=== PATIENT | female | born 1935 | race Two or more races ===

== ENCOUNTER 2016-05-26 11:38 | Inpatient (IN) | payer OTHER, MEDICAID ==
[~2016-05-26] VITALS: Ht 154.9 cm; Wt 81.6 kg
[~2016-05-26 11:38] MED LIST: ACYC200C PO; Aspirin PO; CALC200T3 PO; CARV6.252 PO; CELE200C PO; CEPH-264 PO; CITA20TA5 PO; GABA-586 PO; GABA600T2 PO; HYDR12.53 PO; LANS30CA17 PO; LISI-334 PO; Lisinopril PO; METF10002 PO; OMEP20CA9 PO; OXYC-323 PO; SIMV10TA3 PO; SITA100T PO; SITA1TAB11 PO; Sulfamethoxazole/Trimethoprim PO; VERA240T PO
--- NOTE | 2016-05-26 13:18 | RAD ---
Portable chest, 05/26/2016: History: Shortness of breath with dyspnea Comparison is made to a study from 04/26/2015. There is a vascular stent projected over the ascending aorta. The heart is mildly enlarged. There is calcific plaquing of the aorta. The pulmonary vascularity is normal. No pulmonary infiltrates are seen. There is no evidence of pleural fluid. IMPRESSION: 1. Mild cardiomegaly and aortic atherosclerosis. 2. No acute abnormality is detected.
--- NOTE | 2016-05-26 13:51 | EKG ---
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
[2016-05-26 14:18] LABS: BASO % 1 % (0-3); EOS % 6 % (0-3); HEMATOCRIT 36.3 % (36.0-47.0); HEMOGLOBIN 12.3 g/dL (12.0-15.5); LYMPH # 1.1 x10^3/uL (1.0-4.8); LYMPH % 12 % (24-48); MEAN CORPUSCULAR HEMOGLOBIN 29 pg (25-35); MEAN CORPUSCULAR HGB CONC 34 g/dL (31-37); MEAN CORPUSCULAR VOLUME 87 fL (79-100); MONO % 7 % (0-9); NEUT % 75 % (31-73); PLATELET COUNT 105 x10^3/uL (140-400); RED BLOOD COUNT 4.18 x10^6/uL (3.50-5.40); RED CELL DISTRIBUTION WIDTH 13.4 % (11.5-14.5); WHITE BLOOD COUNT 9.4 x10^3/uL (4.0-11.0)
[2016-05-26 14:28] LABS: BILIRUBIN,URINE NEGATIVE (NEG); GLUCOSE,URINE NEGATIVE (NEG); NITRITE,URINE POSITIVE (NEG); PH,URINE 5.5; PROTEIN,URINE 100 mg/dL (NEG-TRACE); UROBILINOGEN,URINE 0.2 mg/dL (0.2 mg/dL)
[2016-05-26 14:29] LABS: CALCIUM 8.8 mg/dL (8.5-10.1); CREATININE 1.2 mg/dL (0.6-1.0); GFR 43.3; POTASSIUM 4.4 mmol/L (3.5-5.1)
[2016-05-26 14:35] LABS: ALBUMIN 3.4 g/dL (3.4-5.0); ALBUMIN/GLOBULIN RATIO 0.9 (1.0-1.7); TOTAL BILIRUBIN 0.4 mg/dL (0.2-1.0)
[2016-05-26 14:47] LABS: BACTERIA,URINE MANY /HPF (0-FEW); RBC,URINE 0 /HPF (0-2); SQUAMOUS EPITHELIAL CELL,UR FEW /LPF; WBC,URINE >40 /HPF (0-4)
--- NOTE | 2016-05-26 14:59 | PHYS DOC ---
Past Medical History Past Medical History: A-Fib, Cancer, Diabetes-Type II, High Cholesterol, Hypertension, Other Additional Past Medical Histor: "HEART PROBLEMS", shingles Past Surgical History: Angioplasty, Cholecystectomy, Hysterectomy, Tonsillectomy, Other Additional Past Surgical Histo: L KNEE SURGERY, back sx, HEART CATH Alcohol Use: None Drug Use: None Adult General Chief Complaint Chief Complaint: HYPOGLYCEMIA HPI HPI 80-year-old female presents to the emergency department secondary to low blood sugar. Her son states that he complained her this morning that she just felt terribly weak and felt like she needed to go to the hospital. He immediately called EMS to have her brought in. He then was able to check her blood sugar and it was in the 60s he gave her a soda and an apple and this seemed to make her feel better and bring her blood sugar up to a little over 100. Patient states she was in the hospital recently with a urinary tract infection and during that time had several of these similar spells. She denies any fever chills sweats nausea vomiting or diarrhea. She does not have any body aches or upper respiratory type symptoms. She denies a headache or any lateralizing neurologic weakness. [] Review of Systems Review of Systems Constitutional: Denies fever or chills [] Eyes: Denies change in visual acuity, redness, or eye pain [] HENT: Denies nasal congestion or sore throat [] Respiratory: Denies cough or shortness of breath [] Cardiovascular: No additional information not addressed in HPI [] GI: Denies abdominal pain, nausea, vomiting, bloody stools or diarrhea [] : Denies dysuria or hematuria [] Musculoskeletal: Denies back pain or joint pain [] Integument: Denies rash or skin lesions [] Neurologic: Denies headache, focal weakness or sensory changes [] Endocrine: Denies polyuria or polydipsia [] Current Medications Current Medications Current Medications Medications (Trade) Dose Ordered Sig/Tarik Start Time Stop Time Status Last Admin Dose Admin Ceftriaxone Sodium (Rocephin 1gm Ivpb For Omni) 50 ml @ 100 mls/hr 1X ONCE 05/26/16 15:00 05/26/16 15:29 Dextrose 12.5 gm PRN Q15MIN PRN 05/26/16 15:00 Insulin Aspart (Novolog) 0-7 UNITS TIDWMEALS 05/26/16 17:00 UNV Ondansetron HCl 4 mg 4 mg PRN Q8HRS PRN 05/26/16 15:00 05/27/16 14:59 Sodium Chloride (Iv Sodium Chloride 0.9% 1000ml Bag) 1,000 ml @ 125 mls/hr Q8H 05/26/16 14:50 05/27/16 14:49 Allergies Allergies Allergies Coded Allergies Type Severity Reaction Last Updated Verified No Known Drug Allergies 02/20/14 No Physical Exam Physical Exam Constitutional: Well developed, well nourished, somnolent and generally debilitated. [] HENT: Normocephalic, atraumatic, bilateral external ears normal, oropharynx moist, no oral exudates, nose normal. [] Eyes: PERRLA, EOMI, conjunctiva normal, no discharge. [] Neck: Normal range of motion, no tenderness, supple, no stridor. [] Cardiovascular:Heart rate regular rhythm, no murmur [] Lungs & Thorax: Bilateral breath sounds clear to auscultation [] Abdomen: Bowel sounds normal, soft, no tenderness, no masses, no pulsatile masses. [] Skin: Warm, dry, no erythema, no rash. [] Back: No tenderness, no CVA tenderness. [] Extremities: No tenderness, no cyanosis, no clubbing, ROM intact, no edema. [] Neurologic: Alert and oriented X 3, normal motor function, normal sensory function, no focal deficits noted. [] Psychologic: Depressed affect. [] Current Patient Data Vital Signs Vital Signs Date Time Temp Pulse Resp B/P Pulse Ox O2 Delivery O2 Flow Rate FiO2 05/26/16 11:44 97.5 62 20 195/88 98 Room Air 97.5 Lab Values Laboratory Tests Test 05/26/16 14:03 05/26/16 14:21 White Blood Count 9.4x10^3/uL (4.0-11.0) Red Blood Count 4.18x10^6/uL (3.50-5.40) Hemoglobin 12.3g/dL (12.0-15.5) Hematocrit 36.3% (36.0-47.0) Mean Corpuscular Volume 87fL (79-100) Mean Corpuscular Hemoglobin 29pg (25-35) Mean Corpuscular Hemoglobin Concent 34g/dL (31-37) Red Cell Distribution Width 13.4% (11.5-14.5) Platelet Count 105x10^3/uL (140-400) L Neutrophils (%) (Auto) 75% (31-73) H Lymphocytes (%) (Auto) 12% (24-48) L Monocytes (%) (Auto) 7% (0-9) Eosinophils (%) (Auto) 6% (0-3) H Basophils (%) (Auto) 1% (0-3) Neutrophils # (Auto) 7.1x10^3uL (1.8-7.7) Lymphocytes # (Auto) 1.1x10^3/uL (1.0-4.8) Monocytes # (Auto) 0.6x10^3/uL (0.0-1.1) Eosinophils # (Auto) 0.5x10^3/uL (0.0-0.7) Basophils # (Auto) 0.0x10^3/uL (0.0-0.2) Sodium Level 141mmol/L (136-145) Potassium Level 4.4mmol/L (3.5-5.1) Chloride Level 103mmol/L (98-107) Carbon Dioxide Level 29mmol/L (21-32) Anion Gap 9 (6-14) Blood Urea Nitrogen 33mg/dL (7-20) H Creatinine 1.2mg/dL (0.6-1.0) H Estimated GFR (Cockcroft-Gault) 43.3 BUN/Creatinine Ratio 28 (6-20) H Glucose Level 101mg/dL (70-99) H Calcium Level 8.8mg/dL (8.5-10.1) Total Bilirubin 0.4mg/dL (0.2-1.0) Aspartate Amino Transferase (AST) 16U/L (15-37) Alanine Aminotransferase (ALT) 15U/L (14-59) Alkaline Phosphatase 70U/L (46-116) Total Protein 7.0g/dL (6.4-8.2) Albumin 3.4g/dL (3.4-5.0) Albumin/Globulin Ratio 0.9 (1.0-1.7) L Urine Collection Type U cath Urine Color Yellow Urine Clarity Clear Urine pH 5.5 Urine Specific [place] 1.020 Urine Protein 100mg/dL (NEG-TRACE) Urine Glucose (UA) Negativemg/dL (NEG) Urine Ketones (Stick) Negativemg/dL (NEG) Urine Blood Negative (NEG) Urine Nitrite Positive (NEG) Urine Bilirubin Negative (NEG) Urine Urobilinogen Dipstick 0.2mg/dL (0.2 mg/dL) Urine Leukocyte Esterase Small (NEG) Urine RBC 0/HPF (0-2) Urine WBC >40/HPF (0-4) Urine Squamous Epithelial Cells Few/LPF Urine Bacteria Many/HPF (0-FEW) Urine Hyaline Casts Moderate/HPF Laboratory Tests 05/26/16 14:03 Laboratory Tests 05/26/16 14:03 EKG EKG [] Radiology/Procedures Radiology/Procedures [] Course & Med Decision Making Course & Med Decision Making Pertinent Labs and Imaging studies reviewed. (See chart for details) [] ED course: Evaluation reveals a 80-year-old very weak frail female who as it turns out has a urinary tract infection she was given IV fluids during her stay in the emergency department as well as 1 g of IV Rocephin. I feel that best suited to watch her blood sugars closely in the hospital and treated with IV antibiotics and fluids as an inpatient. I spoke with Dr. Killian who agrees with this plan. Dragon Disclaimer Dragon Disclaimer This electronic medical record was generated, in whole or in part, using a voice recognition dictation system. Departure Departure Impression: Primary Impression: UTI (urinary tract infection) Additional Impression: Hypoglycemia Disposition: 09 ADMITTED INPATIENT Admitting Physician: Duane Killian Condition: STABLE Referrals: DUANE KILLIAN MD (PCP) Problem Qualifiers Primary Impression: UTI (urinary tract infection) Urinary tract infection type: site unspecified Hematuria presence: without hematuria Qualified Code: N39.0 - Urinary tract infection, site not specified AMARILIS HOOKS DO May 26, 2016 14:59
[2016-05-26] MEDS ORDERED: CEFTRIAXONE 1GM IVPB FOR OMNI 50 ML IV ONE (15:00)
[2016-05-26] MEDS ORDERED: ONDANSETRON PF 4 MG/2 ML VIAL. IV PRN (15:00)
[2016-05-26] MEDS ORDERED: DEXTROSE 50% 25 GM / 50ML DISP.SYRIN. IV PRN (15:00)
[2016-05-26] MEDS: IV NORMAL SALINE 1000ML BAG 1,000 ML IV SCH (15:16)
--- NOTE | 2016-05-26 16:46 | ACF ---
Admission Forms Criteria URINARY COMPLICATIONS Clinical Indications for Inpatient Care (Place 'X' for any and all applicable criteria): Ongoing inpatient care may be indicated for urinary complications with ANY ONE of the following: [X]I. Urinary tract infection requiring inpatient care as indicated by ANY ONE of the following(8)(19)(20): [ ]a) Severe symptoms (eg, high fever, severe pain) [ ]b) Vomiting or dehydration requiring ongoing inpatient care [X]c) IV antibiotic needs that cannot be managed at lower level of care [ ]d) Hemodynamic instability [ ]e) Obstruction of collecting system by stone or tumor [ ]II. Urinary retention requiring drainage or surgery (3)(4)(5)(17)(18) [ ]III. Renal failure (Use Renal Failure Criteria for further information.) [ ]IV. Oliguria(30) [ ]V. Post obstructive diuresis requiring close monitoring of urine output and intravenous compensation for excessive fluid losses(33) Extended stay beyond goal length of stay for primary condition may be needed until ALL of the following are present(3)(4)(5)(8): [ ]a) Renal function (creatinine) at baseline, or daily decreases in creatinine consistent with renal function return [ ]b) Voiding adequately or with urinary catheter or percutaneous suprapubic tube and management regimen in place that is performable at lower level of care. [ ]c) Urine output adequate [ ]d) Fever absent or resolving [ ]e) Infection absent or treatable at next level of care The original [employer] content created by [employer] has been revised. The portions of the content which have been revised are identified through the use of italic text or in bold, and [facility] has neither reviewed nor approved the modified material. All other unmodified content is copyright [employer] Please see references footnoted in the original [facility] edition 2016 Admission Criteria Met?: Yes PHYLLIS YUSUF May 26, 2016 16:46
[2016-05-26] MEDS: INSULIN ASPART 300 UNITS/3 ML INSULN.PEN SQ SCH (18:23)
[2016-05-26 20:30] VITALS: BP 184/72
[2016-05-26] MEDS: ACETAMINOPHEN 325 MG TABLET. PO PRN (22:05)
[2016-05-26 23:35] VITALS: BP 176/78
[2016-05-27] MEDS ORDERED: AMLO10TA2 PO (00:13)
[2016-05-27] MEDS ORDERED: INSU100V8 SQ (00:13)
[2016-05-27] MEDS ORDERED: DICL100G7 TP (00:13)
[2016-05-27] MEDS ORDERED: HYDR12.53 PO (00:13)
[2016-05-27] MEDS ORDERED: MAGN400T3 PO (00:13)
[2016-05-27] MEDS ORDERED: METF10002 PO (00:13)
[2016-05-27] MEDS ORDERED: INSU100C4 SQ (00:13)
[2016-05-27] MEDS ORDERED: OXYC1TAB8 PO (00:13)
[2016-05-27] MEDS ORDERED: SITA50TA PO (00:13)
[2016-05-27] MEDS: IV NORMAL SALINE 1000ML BAG 1,000 ML IV SCH ×2 (00:37→10:22)
[2016-05-27 03:45] VITALS: BP 189/75
[2016-05-27 07:00] VITALS: BP 190/78
[2016-05-27 07:49] LABS: BASO % 1 % (0-3); EOS % 8 % (0-3); HEMATOCRIT 31.6 % (36.0-47.0); HEMOGLOBIN 10.4 g/dL (12.0-15.5); LYMPH # 1.5 x10^3/uL (1.0-4.8); LYMPH % 24 % (24-48); MEAN CORPUSCULAR HEMOGLOBIN 29 pg (25-35); MEAN CORPUSCULAR HGB CONC 33 g/dL (31-37); MEAN CORPUSCULAR VOLUME 88 fL (79-100); MONO % 9 % (0-9); NEUT % 58 % (31-73); PLATELET COUNT 86 x10^3/uL (140-400); RED BLOOD COUNT 3.59 x10^6/uL (3.50-5.40); RED CELL DISTRIBUTION WIDTH 13.5 % (11.5-14.5); WHITE BLOOD COUNT 6.6 x10^3/uL (4.0-11.0)
[2016-05-27] MEDS: INSULIN ASPART 300 UNITS/3 ML INSULN.PEN SQ SCH ×3 (07:54→17:00)
[2016-05-27] MEDS: ACETAMINOPHEN 325 MG TABLET. PO PRN ×2 (07:57→23:28)
[2016-05-27 08:15] LABS: CALCIUM 8.5 mg/dL (8.5-10.1); CREATININE 0.9 mg/dL (0.6-1.0); GFR 60.4; POTASSIUM 4.1 mmol/L (3.5-5.1)
[2016-05-27] MEDS ORDERED: CALCIUM CARBONATE 500 MG TAB.CHEW PO PRN (08:30)
--- NOTE | 2016-05-27 08:41 | PDOC ---
Provider Note Provider Note [id number] YARELI DEWITT MD May 27, 2016 08:41
[2016-05-27] MEDS ORDERED: METFORMIN 1,000 MG TABLET PO SCH (09:00)
[2016-05-27] MEDS ORDERED: CARVEDILOL 6.25 MG TABLET PO SCH (09:00)
--- NOTE | 2016-05-27 10:11 | HP ---
ADMIT DATE: CHIEF COMPLAINT: Confusion. HISTORY OF PRESENT ILLNESS: A 80-year-old female with known insulin-dependent diabetes, hypertension and chronic pain. She came in with weakness, confusion and fatigue. She was found to have a urinary tract infection and has been given a dose of Rocephin and is feeling better. She was apparently came at about 2-3 weeks ago for the same problem and took an unknown antibiotic and felt better after that. No other specific complaints at this time. MEDICATIONS: Listed per the chart. ALLERGIES: No allergies. No other serious known medical problems except the poorly controlled diabetes, last A1c was about 11, hypertension and chronic pain that she takes oxycodone for. SOCIAL HISTORY: Lives alone, has family in the area, nonsmoker, nondrinker. FAMILY HISTORY: Unremarkable. REVIEW OF SYSTEMS: No other complaints. OBJECTIVE: ENT: All within normal limits. NECK: No bruits, nodes or masses. LUNGS: Clear. CARDIOVASCULAR: Regular rate. No irregular beat or murmur. ABDOMEN: Soft, benign and nontender. BACK: Negative to palpation, ____ tenderness over the flanks. EXTREMITIES: Good pedal and radial pulses. No edema. No joint or skin lesions. NEUROLOGIC: Physiologic, oriented x 4, nonfocal, moves all extremities ____. ASSESSMENT: Urinary tract infection with secondary dysphoria, now improved. Has a history of poorly controlled diabetes with stable hypertension and chronic kidney disease 2/3. PLAN: Continue Rocephin for now and follow. YARELI DEWITT MD DR: MAIKEL/nadeem JOB#: [id number] / [id number]
[2016-05-27] MEDS: AMLODIPINE BESYLATE 10 MG TABLET PO SCH (10:22)
[2016-05-27] MEDS: CLOPIDOGREL BISULFATE 75 MG TABLET PO SCH (10:22)
[2016-05-27] MEDS: LISINOPRIL 20 MG TABLET PO SCH (10:23)
[2016-05-27] MEDS: CITALOPRAM 20 MG TABLET. PO SCH (10:23)
[2016-05-27 10:56] VITALS: BP 167/83
[2016-05-27 15:00] VITALS: BP 185/71
[2016-05-27] MEDS ORDERED: CEFTRIAXONE SODIUM 1 GM in IV NORMAL SALINE 50ML 50 ML IV SCH (15:00)
[2016-05-27] MEDS: INSULIN DETEMIR 300 UNITS/3 ML INSULN.PEN. SQ SCH (17:00)
[2016-05-27] MEDS: CARVEDILOL 12.5 MG TABLET PO SCH (17:33)
[2016-05-27 19:35] VITALS: BP 126/66
[2016-05-27 23:54] VITALS: BP 147/78
[2016-05-28 03:13] VITALS: BP 202/75
[2016-05-28] MEDS: OXYCODONE/APAP 5/325 TABLET. PO PRN ×2 (05:21→13:56)
[2016-05-28] MEDS: AMLODIPINE BESYLATE 10 MG TABLET PO SCH (05:40)
[2016-05-28] MEDS ORDERED: CLONIDINE HCL 0.1 MG TABLET PO ONE (06:00)
[2016-05-28 07:04] VITALS: BP 155/57
[2016-05-28] MEDS: CLOPIDOGREL BISULFATE 75 MG TABLET PO SCH (08:48)
[2016-05-28] MEDS: CARVEDILOL 12.5 MG TABLET PO SCH (08:48)
[2016-05-28] MEDS: LISINOPRIL 20 MG TABLET PO SCH (08:48)
[2016-05-28] MEDS: CITALOPRAM 20 MG TABLET. PO SCH (08:49)
[2016-05-28] MEDS: INSULIN DETEMIR 300 UNITS/3 ML INSULN.PEN. SQ SCH (08:50)
[2016-05-28] MEDS: INSULIN ASPART 300 UNITS/3 ML INSULN.PEN SQ SCH ×2 (08:54→13:08)
--- NOTE | 2016-05-28 10:48 | DISCH ---
DISCHARGE INSTRUCTIONS Condition on Discharge Condition on Discharge: Stable Activity After Discharge Activity Instructions for Disc: No restrictions Diet after Discharge Diet after Discharge: Low Sodium 4 gm Follow-Up Follow up with: as scheduled YARELI DEWITT MD May 28, 2016 10:48
[2016-05-28] MEDS ORDERED: CIPR250T PO (10:49)
--- NOTE | 2016-05-28 10:52 | PDOC ---
Provider Note Provider Note [id number] YARELI DEWITT MD May 28, 2016 10:52
[2016-05-28] MEDS ORDERED: CIPROFLOXACIN HCL 250 MG TABLET PO SCH (11:00)
[2016-05-28 11:55] VITALS: BP 130/55
--- NOTE | 2016-05-28 20:13 | DS ---
DATE OF DISCHARGE: 05/28/2016 HOSPITAL SUMMARY: A 80-year-old female with history of hypertension and poorly controlled diabetes, came in with confusion and weakness. She was found to have urinary tract infection as the only notable finding. She was afebrile, blood pressure was labile in the hospital, but never to high and blood sugars were in very good control in the hospital. BUN was elevated at 33, creatinine 1.2 on admission and came down to 22 and 0.9 with hydration. Urine culture shows gram-negative rods greater than and the ID is pending at this time. She was given 2 doses of IV Rocephin with clinical significant improvement. She will take an oral dose of Cipro this morning and they discharged and follow as an outpatient. FINAL DIAGNOSES: 1. Urinary tract infection. 2. Prerenal azotemia. 3. Poorly controlled type 2 insulin-dependent diabetes mellitus. OPERATIONS, PROCEDURES, COMPLICATIONS, AND CONSULTATIONS: None. DISPOSITION: She will take five more days of Cipro 250 mg p.o. b.i.d. and I will contact her if the urine culture dictates otherwise. Home meds remain all the same as the insulin as she is advised to continue lower salt intake and high fluid intake to lower her blood pressure as she admits to high salt intake. Prognosis is guarded given multiple problems. YARELI DEWITT MD DR: MAIKEL/nadeem JOB#: [id number] / [id number]
== END 2016-05-28 14:35 | disposition home or self-care (01) | DRG 690 ==
LOC: ER 11:38 → ED HOLD 14:52 → 6 SOUTH 21:31
PROVIDERS: ADMIT Family Medicine; ATTEND Family Medicine
DX: N39.0 Urinary tract infection, site not specified (principal); R79.89 Other specified abnormal findings of blood chemistry; E11.65 Type 2 diabetes mellitus with hyperglycemia; Z79.4 Long term (current) use of insulin; E11.22 Type 2 diabetes mellitus with diabetic chronic kidney disease; E11.649 Type 2 diabetes mellitus with hypoglycemia without coma; Z60.2 Problems related to living alone; N18.3 Chronic kidney disease, stage 3 (moderate); I12.9 Hypertensive chronic kidney disease with stage 1 through stage 4 chronic kidney disease, or unspecified chronic kidney disease; G89.29 Other chronic pain; E78.00 Pure hypercholesterolemia, unspecified; I48.91 Unspecified atrial fibrillation; Z90.710 Acquired absence of both cervix and uterus; Z90.49 Acquired absence of other specified parts of digestive tract; Z79.899 Other long term (current) drug therapy
CPT/HCPCS: 36415; 51701; 71010; 80048; 80053; 81001; 82947; 85027; 87086; 93005; 96365; J0690; J0696; J1815; J7030; J7042; 99285-25

== ENCOUNTER → 2017-02-07 | Outpatient (CLI) | payer OTHER, MEDICAID ==
[~2017-02-07] MED LIST changes: +AMLO10TA2 PO; +CIPR250T PO; +DICL100G18 TP; +INSU100C4 SQ; +INSU100V8 SQ; -LANS30CA17 PO; +LANS30CA66 PO; +MAGN400T3 PO; +METF-620 PO; -METF10002 PO; +OXYC1TAB8 PO; +SITA50TA PO
--- NOTE | 2017-02-07 14:17 | RAD ---
Indication left upper quadrant pain. Supine and upright films of the abdomen were obtained. No recent plain film imaging of the abdomen is available. Clips are seen in the gallbladder fossa. There are degenerative changes in the lumbar spine. The abdominal gas pattern is normal. No free air is seen in the lung bases are clear IMPRESSION:: No acute finding seen on plain films of the abdomen
== END | disposition home or self-care (01) ==
LOC: RAD 13:14
PROVIDERS: ATTEND Family Medicine
DX: R10.12 Left upper quadrant pain (principal)
CPT/HCPCS: 74020

== ENCOUNTER → 2017-03-08 | Outpatient (CLI) | payer OTHER, MEDICAID ==
--- NOTE | 2017-03-08 17:04 | RAD ---
KNEE LEFT 3V AP, oblique, lateral Clinical Indication: Left knee pain Comparison: None. Findings: No acute fracture or malalignment. Mild tricompartment arthrosis. Mild medial and lateral compartment chondrocalcinosis. Trace suprapatellar joint effusion. Bony mineralization is normal for the patient's age. Vascular calcifications. No radiopaque foreign body. IMPRESSION: 1. No acute fracture or malalignment. 2. Mild tricompartment arthrosis. 3. Mild medial and lateral compartment chondrocalcinosis which can be seen with CPPD. 4. Trace suprapatellar joint effusion.
== END | disposition home or self-care (01) ==
LOC: RAD 14:34
PROVIDERS: ATTEND Physician Assistant Medical
DX: M17.12 Unilateral primary osteoarthritis, left knee (principal); M11.262 Other chondrocalcinosis, left knee
CPT/HCPCS: 73562

== ENCOUNTER → 2017-06-20 | Outpatient (CLI) | payer OTHER, MEDICAID | END | disposition home or self-care (01) | LOC: RAD 14:34 | DX: M19.011 Primary osteoarthritis, right shoulder (principal); M17.12 Unilateral primary osteoarthritis, left knee; M81.8 Other osteoporosis without current pathological fracture; M11.262 Other chondrocalcinosis, left knee; I70.202 Unspecified atherosclerosis of native arteries of extremities, left leg; R07.81 Pleurodynia; Z91.81 History of falling | CPT/HCPCS: 71046; 71100; 73030; 73562; 73590 ==

== ENCOUNTER 2018-02-04 18:02 | Emergency (ER) | payer OTHER, MEDICAID ==
[~2018-02-04] VITALS: Ht 165.1 cm; Wt 81.6 kg
[~2018-02-04 18:02] MED LIST changes: -AMLO10TA2 PO; +AMLO10TA6 PO; -CITA20TA5 PO; +CITA20TA6 PO; -METF-620 PO; +METF10007 PO
--- NOTE | 2018-02-04 18:48 | PHYS DOC ---
Past Medical History Past Medical History: A-Fib, Cancer, Diabetes-Type II, High Cholesterol, Hypertension, Other Additional Past Medical Histor: "HEART PROBLEMS", shingles Past Surgical History: Angioplasty, Cholecystectomy, Hysterectomy, Tonsillectomy, Other Additional Past Surgical Histo: L KNEE SURGERY, back sx, HEART CATH Alcohol Use: None Drug Use: None Adult General Chief Complaint Chief Complaint: MECHANICAL FALL HPI HPI Condition is an 82-year-old female who presents via EMS after reportedly falling down a couple of steps and hitting her right knee. Patient denies head injury or loss of consciousness. She denies any pain and states that she is able to bear weight just fine on her knee. She also has a couple of small skin tears to her right forearm. She states that she has no pain in her forearm. Review of Systems Review of Systems Constitutional: Denies fever or chills [] Respiratory: Denies cough or shortness of breath [] Cardiovascular: No additional information not addressed in HPI [] Musculoskeletal: Denies back pain or joint pain [] Integument: Positive abrasion to right knee and small skin tears to right forearm[] Neurologic: Denies headache, focal weakness or sensory changes [] Allergies Allergies Allergies Coded Allergies Type Severity Reaction Last Updated Verified No Known Drug Allergies 02/20/14 No Physical Exam Physical Exam Constitutional: Well developed, well nourished, no acute distress, non-toxic appearance. [] HENT: Normocephalic, atraumatic, bilateral external ears normal, oropharynx moist, no oral exudates, nose normal. [] Eyes: PERRLA, EOMI, conjunctiva normal, no discharge. [] Neck: Normal range of motion, no tenderness, supple, no stridor. [] Cardiovascular: Heart rate regular rhythm [] Lungs & Thorax: Bilateral breath sounds clear to auscultation [] Skin: There is a small abrasion noted to the anterior aspect of the right knee overlying the patella. There are also 2 small skin tears noted to the right forearm. No active bleeding is noted. [] Extremities: No tenderness, no cyanosis, no clubbing, ROM intact, no edema. There is mild swelling overlying the right patella without reported tenderness. [] Current Patient Data Vital Signs Vital Signs Date Time Temp Pulse Resp B/P (MAP) Pulse Ox O2 Delivery O2 Flow Rate FiO2 10/28/18 18:04 98.6 72 20 217/95 (135) 96 Room Air 98.6 EKG EKG [] Radiology/Procedures Radiology/Procedures [] Course & Med Decision Making Course & Med Decision Making Pertinent Labs and Imaging studies reviewed. (See chart for details) [] Dragon Disclaimer Dragon Disclaimer This electronic medical record was generated, in whole or in part, using a voice recognition dictation system. Departure Departure Impression: Primary Impression: Contusion of right knee Additional Impression: Skin tear of forearm without complication Disposition: HOME, SELF-CARE Condition: STABLE Referrals: YARELI DEWITT MD (PCP) Patient Instructions: Contusion, Skin Tear Care Problem Qualifiers Primary Impression: Contusion of right knee Encounter type: initial encounter Qualified Codes: S80.01XA - Contusion of right knee, initial encounter Additional Impression: Skin tear of forearm without complication Encounter type: initial encounter Laterality: right Qualified Codes: S51.811A - Laceration without foreign body of right forearm, initial encounter ROVERTO PORTILLO Jr., DO Feb 04, 2018 18:48
[2018-02-04 19:29] VITALS: BP 220/98
--- NOTE | 2018-02-04 20:58 | RAD ---
Three-view right knee radiographs 02/04/2018 CLINICAL HISTORY: Fall with injury to the right knee. Portable AP, lateral and oblique digital radiographs of the right knee were obtained. No fracture or dislocation of the right knee is seen. Mild to moderate degenerative changes are seen involving all 3 components of the right knee. Soft tissue swelling is seen anterior to the right patella. IMPRESSION: No fracture or dislocation of the right knee is seen. Electronically signed by: Aayush Canales MD (02/04/2018 8:55 PM) [facility]
== END 2018-02-04 19:31 | disposition home or self-care (01) ==
LOC: ER 18:02
DX: S51.811A Laceration without foreign body of right forearm, initial encounter (principal); S80.01XA Contusion of right knee, initial encounter; I48.91 Unspecified atrial fibrillation; E11.9 Type 2 diabetes mellitus without complications; E78.00 Pure hypercholesterolemia, unspecified; I10 Essential (primary) hypertension; Z90.49 Acquired absence of other specified parts of digestive tract; Z90.89 Acquired absence of other organs; Z90.710 Acquired absence of both cervix and uterus; W10.8XXA Fall (on) (from) other stairs and steps, initial encounter; Y93.89 Activity, other specified; Y92.89 Other specified places as the place of occurrence of the external cause; Y99.8 Other external cause status
CPT/HCPCS: 73562; 99284